=== PATIENT | female | born 1975 | race American Indian/Alaskan Native ===

== ENCOUNTER 2017-05-26 15:47 | Outpatient (CLI) | payer BC, OTHER | END 2017-05-26 15:48 | disposition home or self-care (01) | LOC: LABHHL 15:47 | PROVIDERS: ATTEND Surgery | DX: D24.2 Benign neoplasm of left breast (principal) | CPT/HCPCS: 88305 ==

== ENCOUNTER 2017-06-21 05:57 | Day surgery (SDC) | payer BC ==
[2017-06-21] MEDS ORDERED: VERSED IV NR (06:00)
[2017-06-21] MEDS ORDERED: PEPCID PO NR (06:00)
[2017-06-21] MEDS ORDERED: NACL 0.9% 1000 ML 1,000 ML IV SCH (06:00)
[2017-06-21] MEDS ORDERED: NACL BACTERIOSTATIC INFILTRATI ONE (06:40)
[2017-06-21] MEDS ORDERED: XYLOCAINE 1% 20 mL ONE (07:27)
[2017-06-21] MEDS ORDERED: MARCAINE 0.25% INFILTRATI ONE ×2 (07:27→08:05)
--- NOTE | 2017-06-21 07:30 | Anesthesia Consultation ---
Anesthesia Consult and Med Hx Date of service: 06/21/17 - Airway Anesthetic Teeth Evaluation: Good ROM Head & Neck: Adequate Mental/Hyoid Distance: Adequate Mallampati Class: Class II Intubation Access Assessment: Good - Pulmonary Exam CTA: Yes - Cardiac Exam Cardiac Exam: No Murmur - Pre-Operative Health Status ASA Pre-Surgery Classification: ASA1, ASA2 Proposed Anesthetic Plan: General - Central Nervous System Hx Psychiatric Problems: No - Hematic Hx Sickle Cell Disease: Yes (Trait) - Other Systems Hx Alcohol Use: No Hx Substance Use: No Hx Cancer: No
--- NOTE | 2017-06-21 07:30 | Anesthesia Day of Surgery ---
Anesthesia Day of Surgery - Day of Surgery Patient Examined: Yes Patient H&P Reviewed: Yes Patient is NPO: Yes
[2017-06-21] MEDS ORDERED: WATER FOR IRRIG STERILE IR ONE (08:05)
[2017-06-21] MEDS ORDERED: XYLOCAINE 1% 20 mL INFILTRATI ONE (08:05)
[2017-06-21] MEDS ORDERED: SUBLIMAZE ONE (08:10)
[2017-06-21] MEDS ORDERED: DIPRIVAN 10 MG/ML IV ONE (09:00)
--- NOTE | 2017-06-21 09:06 | Short Stay Summary ---
Short Stay Documentation Date of service: 06/21/17 - History H&P: obtained from office - Allergies and Medications Current Medications: Allergies No Known Allergies Allergy (Verified 06/14/17 09:55) Home Medications Medication Instructions Recorded Confirmed Last Taken Type HYDROcodone/APAP 5-325 [[place] 1 each PO Q6HR PRN #30 tablet 06/21/17 Unknown Rx 5/325] Active Medications Famotidine (Pepcid) 20 mg PO PREOP NR Stop: 06/21/17 23:59 Last Admin: 06/21/17 06:40 Dose: 20 mg Sodium Chloride (Nacl 0.9% 1000 Ml) 1,000 mls @ 75 mls/hr IV DIRECT OTONIEL Last Admin: 06/21/17 06:45 Dose: 75 mls/hr Midazolam HCl (Versed) 2 mg IV PREOP NR Stop: 06/21/17 23:59 Last Admin: 06/21/17 07:26 Dose: 2 mg - Brief post op/procedure progress note Date of procedure: 06/21/17 Pre-op diagnosis: Left breast fibroadenoma Post-op diagnosis: same Procedure: Left breast fibroadenoma excisional biopsy Anesthesia: GETA Findings: Known left breast fibroadenoma of the upper outer quadrant at the 2:00 position Surgeon: DIANA KWONG Estimated blood loss: minimal Pathology: list (left fibroadenoma) Specimen disposition: to lab Condition: stable - Disposition Condition at discharge: Good Disposition: DC-01 TO HOME OR SELFCARE Short Stay Discharge Plan Activity: other (no heavy lifting) Diet: regular Wound: other (keep incision clean and dry; may shower in 24 hours; no baths, pools or lakes; do not rub or scrub incision) Follow up with: NILSA JASSO MD [Primary Care Provider] - 7 Days DIANA KWONG MD [Staff Physician] - 7 Days Prescriptions: HYDROcodone/APAP 5-325 [[place] 5/325] 1 each PO Q6HR PRN #30 tablet PRN Reason: Pain
--- NOTE | 2017-06-21 09:11 | Operative Report ---
Operative Report Operative Report: Date of Service: June 21, 2017 Preoperative diagnosis: Left breast fibroadenoma of the upper outer quadrant Postoperative diagnosis: Same Procedure: Left breast fibroadenoma excisional biopsy Surgeon: Tash Peterson MD Anesthesia: General Findings: Known left fibroadenoma at the 2:00 position Complications: None EBL: Minimal Disposition: PACU in good condition Indications for operative procedure: This is a 42-year-old premenopausal -[place] lady with known left breast fibroadenoma at the 2 o'clock position. Recommendations were for excisional biopsy given increase in size. Patient wished to proceed with the above procedure. Procedure in detail: The patient was taken to the operating room and was laid supine. Gen. anesthesia was administered. The left breast was prepped and draped in the normal sterile operative fashion. The fibroadenoma was palpable at the 2 o'clock position. Timeout was performed. A skin incision was made with a 15 blade knife and dissection taken down to subcutaneous tissues. The fibroadenoma was was encountered and was dissected free with the aid of the Bovie cautery. Hemostasis was obtained with the Bovie cautery. The specimen was sent to pathology. The subcutaneous tissues were approximated and closed using interrupted 3-0 Vicryl. The skin was closed using a 4-0 Monocryl followed by skin affix. She tolerated very well and was awakened from anesthesia without any complications and transported to PACU in good condition.
--- NOTE | 2017-06-21 09:54 | Post Anesthesia Evaluation ---
- Post Anesthesia Evaluation Patient Participated: Yes Airway Patent: Yes Stable Respiratory Function: Yes Nausea/Vomiting: No Temp > 96.8F: Yes Pain Manageable: Yes Adequeate Hydration: Yes Anesthesia Complications: No
[2017-06-21 09:56] VITALS: BP 124/73
== END 2017-06-21 11:10 | disposition home or self-care (01) ==
LOC: OR 05:57
PROVIDERS: ATTEND Surgery
DX: D24.2 Benign neoplasm of left breast (principal)
CPT/HCPCS: 19120; 88305; J2250; J2704; J3010; J7030; 88307

== ENCOUNTER 2021-04-22 14:23 | Outpatient (CLI) | payer BC ==
--- NOTE | 2021-04-23 09:44 | Mammography Report ---
DIGITAL SCREENING MAMMOGRAM WITH TOMOSYNTHESIS WITH CAD, 04/22/2021 CLINICAL INFORMATION / INDICATION: Routine Screening Mammography. TECHNIQUE: Digital bilateral 2D and 3D mammography with tomosynthesis was obtained in the craniocaud al and mediolateral oblique projections. Computer-Aided Detection (CAD) analysis was used for interp retation of this study. COMPARISON: 03/31/2020, 04/25/2019 FINDINGS: Breast Density: The breasts are heterogeneously dense, which may obscure small masses. No dominant mass, suspicious calcifications, or architectural distortion in the right breast. An ovoid nodular density is seen along the upper left breast on the 2-D and 3-D MLO views only measur ing 1.4 x 1.0 cm and located 5.9 cm from the nipple. Scarring is again noted along the upper left tari ast without other significant abnormalities. IMPRESSION: Indeterminate left breast nodular density as above. A limited left breast ultrasound and possible diagnostic left mammogram with spot compression views is recommended for further evaluation. Follow up recommendation: Ultrasound BI-RADS Category 0: Incomplete. Needs additional imaging evaluation and/or prior mammograms for hernando simmons. A "normal" or negative report should not discourage follow up or biopsy of a clinically significant f inding. A written summary of these findings will be mailed to the patient. The patient will be entered into a mammography reporting system which will generate a reminder letter for the patient's next appointmen t at the appropriate interval. The [employer] recommends yearly mammograms starting at age 40 and continuing as l aylin as a woman is in good health. Breast MRI is recommended for women with an approximate 20-25% or greater lifetime risk of breast cancer, including women with a strong family history of breast or ova susanne cancer or who have been treated for Hodgkin's disease. Signer Name: Gato Saravia MD Signed: 04/23/2021 9:40 AM Workstation Name: [id number]
== END 2021-04-22 14:24 | disposition home or self-care (01) ==
LOC: SPVWC 14:23
PROVIDERS: ATTEND Surgery
DX: Z12.31 Encounter for screening mammogram for malignant neoplasm of breast (principal)
CPT/HCPCS: 77063; 77067